=== PATIENT | female | born 1995 | race Caucasian/White ===

== ENCOUNTER 2017-10-27 01:20 | Emergency (ER) | payer BC ==
[~2017-10-27 01:20] MED LIST: BIRTH CONTROL PO; METR-159 PO; ONDA4TAB9 PO
--- NOTE | 2017-10-27 01:42 | ER Report ---
History and Physical Time Seen By MD: 01:42 Hx. of Stated Complaint: PT REPORTS SOB AND EARLY BRONCHITIS, PRESSURE IN CHEST HPI/ROS CHIEF COMPLAINT: short of breath, chest pressure with cough HISTORY OF PRESENT ILLNESS: This is a 22 year old female. She is having cough and chest pressure. Feeling short of breath tonight. Was recently treated for Sinusitis and was getting better, but today with the smoke in the air, started to feel worse again. Finished her antibiotics. Finished steroid burst over a few days and was feeling a lot better. No fevers. No swelling in legs. No abdominal pain, but mild nausea. Allergies: Coded Allergies: No Known Drug Allergies (Unverified , 06/19/14) Home Meds Active Scripts Methylprednisolone (METHYLPREDNISOLONE) 4 Mg Tab.ds.pk, 4 MG PO DIRECTED, #1 PACK 0 Refills Prov:ALEXA MCALLISTER MD 10/27/17 Reported Medications [ Control] No Conflict Check, 1 TAB PO QDAY 06/19/14 Discontinued Scripts Metronidazole (METRONIDAZOLE) 250 Mg Tablet, 250 MG PO TID, #15 TAB 0 Refills Prov:ALEXA MCALLISTER MD 06/19/14 Ondansetron (ONDANSETRON ODT) 4 Mg Tab.rapdis, 4 MG PO Q6H PRN for NAUSEA/VOMITING, #20 TAB 0 Refills Prov:ALEXA MCALLISTER MD 06/19/14 Reviewed Nurses Notes: Yes Hx Smoking: No Hx Substance Use Disorder: No Hx Alcohol Use: No Constitutional Vital Sign - Last 24 Hours 10/27/17 10/27/17 10/27/17 10/27/17 01:22 01:27 01:35 01:50 Temp 98.0 Pulse 116 102 108 Resp 18 B/P (MAP) 132/85 (101) 132/85 Pulse Ox 99 100 100 O2 Delivery Room Air 10/27/17 10/27/17 10/27/17 10/27/17 02:05 02:15 02:20 02:23 Pulse 109 106 105 Resp 16 B/P (MAP) 88/54 (65) Pulse Ox 100 100 10/27/17 10/27/17 10/27/17 10/27/17 02:25 02:30 02:35 02:50 Pulse 113 122 112 Resp 16 B/P (MAP) 114/83 (93) Pulse Ox 99 99 10/27/17 03:00 B/P (MAP) 94/64 (74) Physical Exam General Appearance: Alert, some anxiety and mild distress. Eyes: Pupils equal and round no injection. ENT: Normal oral mucosa. Moist mucous membranes. Tympanic membranes are normal. Neck: Neck is supple and non tender. Respiratory: Chest is non tender, lungs with rhonchi and very mild expiratory wheezing. Cardiac: regular rate and rhythm Gastrointestinal: Abdomen is soft and non tender Musculoskeletal: Extremities have full range of motion. Non tender. Skin: No rashes or lesions. DIFFERENTIAL DIAGNOSIS: After history and physical exam differential diagnosis was considered for shortness of breath including but not limited to viral process, reactive airway disease, pulmonary infectious process. Medical Decision Making EKG/Imaging Imaging EXAMINATION: Chest radiographs 2 views HISTORY: Cough, short of breath. COMPARISON: None. FINDINGS: PA and lateral views of the chest are submitted. Lines/tubes: None. Lungs/pleura: No focal consolidation or pleural effusion. Heart: Negative. Mediastinum: Negative. Bony structures/body wall: Negative. IMPRESSION: No radiographic evidence of acute cardiopulmonary disease. Report Dictated By: Tawny Green MD at 10/27/2017 2:49 AM ED Course/Re-evaluation ED Course [place] better after the DuoNeb breathing treatment. Chest x-ray negative. Patient home with Medrol Dose-pack and Albuterol inhaler. Decision to Disposition Date: Oct 27, 2017 Decision to Disposition Time: 03:07 Depart Departure Latest Vital Signs Vital Signs Date Time Temp Pulse Resp B/P (MAP) Pulse Ox O2 Delivery O2 Flow Rate FiO2 10/27/17 03:00 94/64 (74) 10/27/17 02:50 112 99 10/27/17 02:25 16 10/27/17 01:27 98.0 Room Air Impression: Primary Impression: Upper respiratory infection Additional Impression: Reactive airway disease Condition: Improved Disposition: HOME OR SELF-CARE New Scripts Methylprednisolone (METHYLPREDNISOLONE) 4 Mg Tab.ds.pk 4 MG PO DIRECTED, #1 PACK 0 Refills Prov: ALEXA MCALLISTER MD 10/27/17 Patient Instructions: Upper Respiratory Infection (ED) Additional Instructions: Albuterol inhaler, take 2 puff inhaled every 4 hours as needed for cough and shortness of breath. Medrol dosepack starting later this morning for the next 6 days. Problem Qualifiers Primary Impression: Upper respiratory infection URI type: unspecified viral URI Qualified Codes: J06.9 - Acute upper respiratory infection, unspecified Additional Impression: Reactive airway disease Asthma severity: mild Asthma persistence: intermittent Asthma complication type: with acute exacerbation Qualified Codes: J45.21 - Mild intermittent asthma with (acute) exacerbation ALEXA MCALLISTER MD Oct 27, 2017 01:42
[2017-10-27] MEDS ORDERED: ALBUTEROL 2.5 MG/3 ML NEB NEB ONE (01:55)
[2017-10-27] MEDS ORDERED: ALBUTEROL/IPRATROPIUM 3 ML NEB NEB ONE (02:25)
--- NOTE | 2017-10-27 02:54 | RADIOLOGY IMAGING REPORT ---
FACILITY: [facility] PATIENT NAME: Gina Shukla : 1995 MR: [id number] V: [id number] EXAM DATE: ORDERING PHYSICIAN: ALEXA MCALLISTER TECHNOLOGIST: Location: [facility] - [place] Patient: Gina Shukla : 1995 Visit/Account:[id number] Date of Sevice: 10/27/2017 EXAMINATION: Chest radiographs 2 views HISTORY: Cough, short of breath. COMPARISON: None. FINDINGS: PA and lateral views of the chest are submitted. Lines/tubes: None. Lungs/pleura: No focal consolidation or pleural effusion. Heart: Negative. Mediastinum: Negative. Bony structures/body wall: Negative. IMPRESSION: No radiographic evidence of acute cardiopulmonary disease. Report Dictated By: Tawny Green MD at 10/27/2017 2:49 AM Report E-Signed By: Tawny Green MD at 10/27/2017 2:51 AM WSN:[id number]
[2017-10-27 03:00] VITALS: BP 94/64
[2017-10-27] MEDS ORDERED: ALBUTEROL 8 GM INHALER INH ONE (03:05)
[2017-10-27] MEDS ORDERED: methylPREDNIS 4 MG TAB PO ONE (03:05)
[2017-10-27] MEDS ORDERED: METH4TAB66 PO (03:09)
[2017-10-27] MEDS ORDERED: predniSONE 20 MG TAB PO ONE (03:20)
== END 2017-10-27 03:26 | disposition home or self-care (01) ==
LOC: ER 01:30
DX: J06.9 Acute upper respiratory infection, unspecified (principal); J45.21 Mild intermittent asthma with (acute) exacerbation
CPT/HCPCS: 71046; 94640; 99283; J3535; J7512; J7620